=== PATIENT | female | born 1970 | race Two or more races ===

== ENCOUNTER 2024-06-04 15:29 | Emergency (ER) | payer BC, OTHER ==
[~2024-06-04] VITALS: Ht 157.5 cm; Wt 81.8 kg
--- NOTE | 2024-06-04 16:21 | DVH ---
CHEST RADIOGRAPH Indication: cp Technique: Single frontal view of the chest was obtained COMPARISON: None FINDINGS: Lines and Tubes: None Lungs: Clear Pleura: No effusion. No pneumothorax. Cardiomediastinal contours: Unremarkable Bones: Unremarkable IMPRESSION: No acute disease.
--- NOTE | 2024-06-04 16:37 | ECG ---
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
[2024-06-04 17:36] LABS: Basophils # (auto) 0 10 ^3/uL (0-0.2); Basophils % (auto) 0.4 % (0.0-2.0); Eosinophils # (auto) 0.2 10 ^3/uL (0-0.8); Eosinophils % (auto) 3.3 % (0.0-7.0); Hemoglobin 15.1 g/dL (12.2-16.2); Lymphocytes # (auto) 3.1 10 ^3/uL (0.4-5.4); Lymphocytes % (auto) 46.6 % (10.0-50.0); Mean Corpuscular Hemoglobin 31.5 pg (28.0-32.0); Mean Corpuscular Hgb Conc. 34.4 g/dL (32.0-36.0); Mean Corpuscular Volume 91.6 fL (80.0-100.0); Monocytes # (auto) 0.3 10 ^3/uL (0-1.3); Monocytes % (auto) 5.2 % (0.0-12.0); Neutrophils # (auto) 2.9 10 ^3/uL (1.6-8.6); Neutrophils % (auto) 44.5 % (37.0-80.0); Nucleated Red Blood Cells % 0.1 %; Platelet Count (auto) 173 10^3/uL (140-450); Red Cell Distribution Width 12.7 % (11.8-14.3); White Blood Cell 6.6 10^3/uL (4.4-10.8)
[2024-06-04 17:48] LABS: Chloride 108 mmol/L (98-107); Potassium 4.3 mmol/L (3.5-5.1); Sodium 144 mmol/L (136-145)
[2024-06-04 17:49] LABS: Anion Gap 8 (5-15); Calcium 10.2 mg/dL (8.7-10.4); Carbon Dioxide 28 mmol/L (20-31)
[2024-06-04 17:54] LABS: BUN/Creatinine Ratio 12.4 (10.0-20.0); Blood Urea Nitrogen 11 mg/dL (9-23); Glucose 155 mg/dL (74-106)
[2024-06-04] MEDS ORDERED: CYCL-837 PO (19:54)
--- NOTE | 2024-06-04 19:56 | ED.PDOC ---
Musculoskeletal HPI Comments 53-year-old female brought in by EMS. Patient was at her primary care doctor's office when she was complaining of left arm pain and numbness. States the pain and numbness has been going on for one week. She they did EKG at her primary doctor's office and was reported abnormal so they recommended she follow up in the emergency department. Patient denies any chest pain denies any shortness a breath. Patient states she does have pain in her neck that radiates to her arm. Nothing makes it better, movement makes her pain worse. Chief Complaint: Upper Extremity Time Seen by MD: 15:44 Reviewed Notes: Nurses Notes Allergies: Coded Allergies: NO KNOWN ALLERGIES (Unverified , 06/04/24) Information Source: Patient Mode of Arrival: EMS Location: Left Extremity Location: Arm Past Medical History PAST MEDICAL HISTORY: Denies Surgical History: Denies all surgeries SECOND HELPER History: No Pertinent SECOND HELPER History Constitutional: denies: chills, diaphoresis, fatigue, fever, malaise, sweats, weakness, others EENTM: denies: blurred vision, double vision, ear bleeding, ear discharge, ear drainage, ear pain, ear ringing, eye pain, eye redness, hearing loss, mouth pain, mouth swelling, nasal discharge, nose bleeding, nose congestion, nose pain, photophobia, tearing, throat pain, throat swelling, voice changes, others Respiratory: denies: cough, hemoptysis, orthopnea, SOB at rest, shortness of breath, SOB with excertion, stridor, wheezing, others Cardiovascular: denies: chest pain, dizzy spells, diaphoresis, Dyspnea on exertion, edema, irregular heart beat, left arm pain, lightheadedness, palpitations, PND, syncope, others Gastrointestinal: denies: abdomen distended, abdominal pain, blood streaked bowels, constipated, diarrhea, dysphagia, difficulty swallowing, hematemesis, melena, nausea, poor appetite, poor fluid intake, rectal bleeding, rectal pain, vomiting, others Genitourinary: denies: abnormal vagina bleeding, burning, dyspareunia, dysuria, flank pain, frequency, hematuria, incontinence, pain, , vagina discharge, urgency, others Neurological: denies: dizziness, fainting, headache, left sided numbness, left sided weakness, numbness, paresthesia, pre-existing deficit, right sided numbn ess, right sided weakness, seizure, speech problems, tingling, tremors, weakness, others Musculoskeletal: reports: muscle pain, muscle stiffness; denies: back pain, gout, joint pain, joint swelling, neck pain, others Integumetry: denies: bruises, change in color, change in hair/nails, dryness, laceration, lesions, lumps, rash, wounds, others Allergic/Immunocompromised: denies: Difficulty Healing, Frequent Infections, Hives, Itching, others Hematologic/Lymphatic: denies: anemia, blood clots, easy bleeding, easy bruising, swollen glands, others Physical Exam General Appearance: No Apparent Distress, Normal HEENT: Normal ENT Inspection, Pharynx Normal, TMs Normal Neck: Full Range of Motion, Non-Tender, Normal, Normal Inspection Respiratory: Chest Non-Tender, Lungs Clear, No Accessory Muscle Use, No Respiratory Distress, Normal Breath Sounds Cardiovascular: No Edema, No JVD, No Murmur, No Gallop, Normal Peripheral Pulses, Regular Rate/Rhythm Breast Exam: Deferred Gastrointestinal: No Organomegaly, Non Tender, No Pulsatile Mass, Normal Bowel Sounds, Soft Genitalia: Deferred Pelvic: Deferred Rectal: Deferred Extremities: No calf tenderness, Normal capillary refill, Normal inspection, Normal range of motion, Non-tender, No pedal edema Musculoskeletal : Location: Bilateral (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 Was a procedure done?: No Differential Diagnosis EXT Differential Diagnosis: Fracture, Sprain, Dislocation, Laceration, Myocardial Infarction X-Ray, Labs, Meds, VS Vital Signs Date Time Temp Pulse Resp B/P (MAP) Pulse Ox O2 Delivery O2 Flow Rate FiO2 06/04/24 15:47 97.8 76 16 113/72 (86) 94 Lab Test 06/04/24 17:58 06/04/24 16:48 Range/Units Troponin I High Sensitivity < 3 L < 3 L </=34 ng/L White Blood Count 6.6 4.4-10.8 10^3/uL Red Blood Count 4.80 4.0-5.20 10^6/uL Hemoglobin 15.1 12.2-16.2 g/dL Hematocrit 44.0 36.0-46.0 % Mean Corpuscular Volume 91.6 80.0-100.0 fL Mean Corpuscular Hemoglobin 31.5 28.0-32.0 pg Mean Corpuscular Hemoglobin Concent 34.4 32.0-36.0 g/dL Red Cell Distribution Width 12.7 11.8-14.3 % Platelet Count 173 140-450 10^3/uL Mean Platelet Volume 8.3 6.9-10.8 fL Neutrophils (%) (Auto) 44.5 37.0-80.0 % Lymphocytes (%) (Auto) 46.6 10.0-50.0 % Monocytes (%) (Auto) 5.2 0.0-12.0 % Eosinophils (%) (Auto) 3.3 0.0-7.0 % Basophils (%) (Auto) 0.4 0.0-2.0 % Neutrophils # (Auto) 2.9 1.6-8.6 10 ^3/uL Lymphocytes # (Auto) 3.1 0.4-5.4 10 ^3/uL Monocytes # (Auto) 0.3 0-1.3 10 ^3/uL Eosinophils # (Auto) 0.2 0-0.8 10 ^3/uL Basophils # (Auto) 0 0-0.2 10 ^3/uL Nucleated Red Blood Cells 0.1 % Sodium Level 144 136-145 mmol/L Potassium Level 4.3 3.5-5.1 mmol/L Chloride Level 108 H 98-107 mmol/L Carbon Dioxide Level 28 20-31 mmol/L Anion Gap 8 5-15 Blood Urea Nitrogen 11 9-23 mg/dL Creatinine 0.89 0.550-1.02 mg/dL Glomerular Filtration Rate Calc 77 >90 mL/min BUN/Creatinine Ratio 12.4 10.0-20.0 Serum Glucose 155 H 74-106 mg/dL Calcium Level 10.2 8.7-10.4 mg/dL X-Ray, Labs, Meds, VS Comment Imaging: X-rays and CT scans were reviewed and interpreted by this provider, imaging shows no fractures and no pathological disease. Pending radiology review. Laboratory: Labs reviewed and interpreted by this provider. No significant abnormalities noted. Patient has prior medical visits reviewed. Med reconciliation performed Vital signs reviewed Time of 1ST Reevaluation: 19:55 Reevaluation 1ST: Improved Patient Education/Counseling: Diagnosis, Treatment, Need For Follow Up (Patient advised to follow-up in the emergency room in the next 24 to 48 hours if symptoms do not improve. Advised follow-up with PCP in the next 3 to 5 days. Patient verbalized understanding. ) Family Education/Counseling: Diagnosis Departure 1 Departure Time of Disposition: 19:53 Impression: Primary Impression: Cervical radiculopathy Disposition: HOME / SELF CARE / HOMELESS Condition: Fair e-Prescriptions Cyclobenzaprine Hcl (Cyclobenzaprine Hcl) 5 Mg Tab 1 TAB PO TID PRN, #30 TAB Prov: CHANDNI MAIK 06/04/24 Discharged With: Self Critical Care Note Critical Care Time?: No Stability Stability form required: No Heart Score Heart Score: Heart Score Response (Comments) Value History Slightly Suspicious 0 EKG Normal 0 Age 45-64 1 Risk Factors No known risk factors 0 Troponin Normal limit 0 Total 1 CHANDNI MAKI Jun 04, 2024 19:55
[2024-06-04] MEDS: KETOROLAC TROMETH 30 MG/ML 1ML VIAL IM ONE (23:27)
[2024-06-04] MEDS: methylPREDNISolone SOD SUCC 125 MG/2 ML VL IM ONE (23:28)
[2024-06-04 23:46] VITALS: BP 107/62; TEMP 98.7
[2024-06-04 23:47] VITALS: PULSE 69; RESP 18; O2SAT 98
== END 2024-06-05 00:16 | disposition home or self-care (01) ==
LOC: EDBD 15:29 → ER 15:29
DX: M54.12 Radiculopathy, cervical region (principal); R60.0 Localized edema
CPT/HCPCS: 36415; 71045; 80048; 84484; 85025; 93005; 96372; 99285; J1885; J2919

== ENCOUNTER 2025-01-30 09:50 | Day surgery (SDC) | payer BC ==
[~2025-01-30] VITALS: Ht 157.5 cm; Wt 79.4 kg
[2025-01-30] VITALS (7 sets, daily range): BP systolic 103–123; BP diastolic 72–85; PULSE 60–67; RESP 12–28; O2SAT 93–96
[~2025-01-30 09:50] MED LIST: ATOR10TA52 PO; CYCL-837 PO; EMPA1TAB PO; OMEP20TA PO; SUMA50TA16 PO
[2025-01-30] MEDS: IODIXANOL 320MG/ML 100ML BTL IV ONE (10:53)
[2025-01-30] MEDS: ANGIOMAX 250 MG VIAL IV ONE (11:41)
[2025-01-30] MEDS: HEPARIN SODIUM (PORCINE) 5000 UNITS/ML 1ML VIAL ONE (11:41)
[2025-01-30] MEDS: VERAPAMIL 2.5MG/ML INJ 2ML VIAL IV ONE (11:41)
[2025-01-30] MEDS: fentaNYL CITRATE 100 MCG/2 ML VL ONE (11:42)
[2025-01-30] MEDS: MIDAZOLAM HCL 2MG/2ML 2ml VIAL (1mg/ml) ONE (11:42)
[2025-01-30] MEDS: NITROGLYCERIN 50MG/250ML 250 ML IV ONE (11:43)
[2025-01-30] MEDS: SODIUM CHL 0.9% 0 ML ONE (11:43)
[2025-01-30] MEDS: LIDOCAINE 2%HCL (LOCAL ANESTH.) INJ 20ML MDV ONE (11:43)
--- NOTE | 2025-01-30 12:24 | DVHOP2 ---
Operative Report - 2 Report Details Date: 01/30/25 Preop Diagnosis: CAD. Cardiomyopathy. Postop Diagnosis: Normal coronary arteries. Resolution and cardiomyopathy. Surgeon: Elizabeth Haas MD Anesthesiologist: Conscious sedation Anesthesia: Mac, Local Consent: The patient was informed of the risks and benefits of the procedure. These include but are not limited to complications of anesthesia, postoperative infection, incomplete relief of symptoms, recurrence of symptoms, damage to blood vessels, nerves and tendons, deep venous thrombosis, pulmonary embolism and possible need for repeat surgery in the future. Complications: No complications Findings: Normal coronary arteries. Endothelial dysfunction. Normal LV function. Indications for Surgery: Chest pain history of cardiomyopathy Name of Procedure Performed Left heart catheterization. Bilateral cine coronary angiography. Left ventriculography. Procedure Details Procedure Details: Prior local anesthesia with 2% lidocaine to the right wrist and full informed consent obtained the patient was prepped and draped in the usual fashion followed by placement of a six Hungarian sheath into the radial artery. A multipurpose catheter was used to cannulate both right and left coronary ostia and ventriculography. No complications. Hemodynamics: Aortic blood pressure was 110/70. End-diastolic pressure was eight. There was no gradient across the aortic valve on pullback. Coronary anatomy: The RCA is a large dominant vessel it is normal in his proximal mid and distal segments. The PDA and posterolateral branches are normal. Sluggish flow throughout the coronary suggest endothelial dysfunction. Left main is large and normal. Left anterior descending is large and normal. The circumflex is large vessel two marginals are noted. Free of significant disease. Ventriculography in the SAEED projection shows an EF of 60%. Impression: Normal left ventricular end-diastolic pressure at rest. Normal ejection fraction. No significant CAD. Endothelial dysfunction suggested by sluggish coronary flow. Recommendations: Continue current medical therapy. Risk factor modification to continue. Condition Good Disposition Home Date of Service: Jan 30, 2025 Billing Provider: ELIZABETH HAAS Sr., MD Cardiology Common Codes: 65057-SVNLUPM INP/OBS CARE (High) Cardiology Procedure Codes: 16228-SJBY HEART CATH W/INTRA INJ ELIZABETH HAAS Sr., MD Jan 30, 2025 12:24
== END 2025-01-30 14:42 | disposition home or self-care (01) ==
LOC: CATH 09:50
PROVIDERS: ATTEND Internal Medicine
DX: I25.10 Atherosclerotic heart disease of native coronary artery without angina pectoris (principal); I42.9 Cardiomyopathy, unspecified; Z88.5 Allergy status to narcotic agent; Z88.8 Allergy status to other drugs, medicaments and biological substances
CPT/HCPCS: 93458; C1894; J1644; J2250; J3010; J7030; Q9967; 99152